=== PATIENT | female | born 1955 | race Two or more races ===

== ENCOUNTER 2018-11-12 09:44 | Day surgery (SDC) | payer BC ==
[~2018-11-12] VITALS: Ht 160 cm; Wt 89.9 kg
[~2018-11-12 09:44] MED LIST: AMIO100T4 PO; AMLO2.5T5 PO; BUPIVACAINE/PF-EPI 0.5% 1:200K ONE; CITA20TA6 PO; FERR-46 PO; LEVO112T4 PO; LEVO125T5 PO; LIDOCAINE 1%, 20ML ONE; LISI-170 PO; LISI1TAB5 PO; MULT-717 PO
[2018-11-12 09:59] VITALS: BP 126/80
[2018-11-12] MEDS ORDERED: LACTATED RINGERS 1,000 ML IV SCH (10:02)
[2018-11-12] MEDS ORDERED: ACETAMINOPHEN 500 MG TABLET PO ONE (10:30)
[2018-11-12] MEDS ORDERED: GABAPENTIN 300 MG CAPSULE PO ONE (10:30)
[2018-11-12] MEDS ORDERED: FENTANYL PF 250 MCG/5ML ONE (11:23)
[2018-11-12] MEDS ORDERED: ROCURONIUM 10MG/ML,5ML ONE (11:40)
[2018-11-12] MEDS ORDERED: CEFAZOLIN 1,000 MG ONE (11:40)
[2018-11-12] MEDS ORDERED: DEXAMETHASONE 4 MG/ML, 1ML ONE (11:40)
[2018-11-12] MEDS ORDERED: VASOPRESSIN 20 UNIT/ML, 1ML ONE (11:40)
[2018-11-12] MEDS ORDERED: PROPOFOL 10 MG/ML, 20ML ONE (11:40)
[2018-11-12] MEDS ORDERED: ONDANSETRON 2MG/ML, 2ML ONE (11:40)
[2018-11-12] MEDS ORDERED: SUCCINYLCHOLINE 20 MG/ML, 10ML ONE (11:40)
[2018-11-12] MEDS ORDERED: OXYcodone 5 MG/5 ML ORAL.SOL UDC ONE (13:52)
[2018-11-12] MEDS ORDERED: HALOPERIDOL 5 MG/ML IV PRN (14:00)
[2018-11-12] MEDS ORDERED: LABETALOL 5MG/ML, 20ML IV PRN (14:00)
[2018-11-12] MEDS ORDERED: hydrALAzine 20 MG/ML, 1ML IV PRN (14:00)
[2018-11-12] MEDS ORDERED: METOPROLOL 1 MG/ML, 5ML IV PRN (14:00)
[2018-11-12] MEDS ORDERED: OXYcodone 5 MG/5 ML ORAL.SOL UDC PO PRN (14:00)
[2018-11-12] MEDS ORDERED: PROMETHAZINE 25 MG/ML, 1ML IV PRN (14:00)
[2018-11-12] MEDS ORDERED: DIPHENHYDRAMINE 50 MG/ML, 1ML IVPush PRN (14:00)
[2018-11-12] MEDS ORDERED: FENTANYL PF 100 MCG/2ML IV PRN (14:00)
[2018-11-12] MEDS ORDERED: PROCHLORPERAZINE 5 MG/ML, 2ML IV PRN (14:00)
[2018-11-12] MEDS ORDERED: HYDROmorphone 2 MG/ML, 1ML IVPush PRN (14:00)
[2018-11-12] MEDS ORDERED: MEPERIDINE/PF 25MG/0.5ML IVPush PRN (14:00)
== END 2018-11-12 15:45 | disposition home or self-care (01) ==
LOC: OR 09:44
PROVIDERS: ATTEND Orthopaedic Surgery
DX: M92.62 Juvenile osteochondrosis of tarsus, left ankle (principal); M76.62 Achilles tendinitis, left leg; I10 Essential (primary) hypertension; F41.9 Anxiety disorder, unspecified; F32.9 Major depressive disorder, single episode, unspecified; E03.9 Hypothyroidism, unspecified
CPT/HCPCS: 27652; 28120; 64445; 73600; 76000; C1713; J0330; J0690; J1100; J2405; J2704; J3010; J7120; J3490

== ENCOUNTER 2019-04-04 17:22 | Emergency (ER) | payer BC ==
[~2019-04-04] VITALS: Ht 162.6 cm; Wt 85.0 kg
[~2019-04-04 17:22] MED LIST changes: -BUPIVACAINE/PF-EPI 0.5% 1:200K ONE; -LIDOCAINE 1%, 20ML ONE
--- NOTE | 2019-04-04 17:27 | NUR ---
MARYAN CALLED BY PT . PER REPORT, PT WILL BINGE DRINK FOR 1-2WEEKS. STATES, "SHE ONLY GETS UP TO GO TO THE BATHROOM." ERMD IN TO EXAMINE PT. PT IS TEARFUL. DENIES SOB, CP, TRUAMA. PT TO NIBP, CONT PULSE OX.
--- NOTE | 2019-04-04 17:30 | NUR ---
PT REPORTS 3 BEERS PER DAY
[2019-04-04 17:53] LABS: BASOPHILS # (AUTO) 0.04 x10^3/uL (0-0.1); BASOPHILS % (AUTO) 1 % (0-1); EOSINOPHILS # (AUTO) 0.09 x10^3/uL (0-0.4); EOSINOPHILS % (AUTO) 2 % (1-7); LYMPHOCYTES # (AUTO) 1.39 x10^3/uL (1-3.4); LYMPHOCYTES % (AUTO) 23 % (22-44); MD NO; MEAN CORPUSCULAR HEMOGLOBIN 27.1 pg (27.0-34.8); MEAN CORPUSCULAR HGB CONC 33.1 g/dL (32.4-35.8); MEAN CORPUSCULAR VOLUME 81.8 fL (80-100); MEAN PLATELET VOLUME 7.3 fL (7.4-10.4); MONOCYTES # (AUTO) 0.26 x10^3/uL (0.2-0.8); MONOCYTES % (AUTO) 4 % (2-9); NEUTROPHILS # (AUTO) 4.34 x10^3/uL (1.8-6.8); NEUTROPHILS % (AUTO) 71 % (42-75); PLATELET COUNT 386 x10^3/uL (130-400); RED BLOOD COUNT 4.11 x10^6/uL (3.82-5.3); RED CELL DISTRIBUTION WIDTH 19.7 % (9.6-15.2)
[2019-04-04 18:00] LABS: INTERNATIONAL NORMALIZED RATIO 1.05 (0.93-1.1)
[2019-04-04] MEDS ORDERED: THIAMINE 100MG TABLET PO ONE (18:00)
[2019-04-04] MEDS ORDERED: ONDANSETRON 2MG/ML, 2ML IVPush ONE (18:00)
[2019-04-04] MEDS ORDERED: SODIUM CHLORIDE FLUSH 10ML SYR IVF ONE (18:00)
[2019-04-04 18:03] LABS: ALANINE AMINOTRANSFERASE 31 U/L (12-78); ALBUMIN 3.2 g/dL (3.4-5.0); ANION GAP 12 mmol/L (5-15); CALCIUM 7.7 mg/dL (8.5-10.1); CHLORIDE 100 mmol/L (98-107); CREATININE 0.69 mg/dL (0.55-1.02)
--- NOTE | 2019-04-04 18:03 | NUR ---
PATIENT ASSITED TO COMODE. PATIENT NEEDED ONE PERSON ASSIST AND FOLLOWED SOME DIRECTIONS. PATIENT REFUSED CHANGING INTO A GOWN AT THIS TIME. UA SENT TO LAB
[2019-04-04 18:05] LABS: ALKALINE PHOSPHATASE 152 U/L (45-117); BILIRUBIN,TOTAL 0.7 mg/dL (0.2-1.0); TOTAL PROTEIN 7.6 g/dL (6.4-8.2)
[2019-04-04 18:18] LABS: AMPHETAMINE SCREEN, URINE Negative (Negative); BARBITURATE SCREEN, URINE Negative (Negative); BENZODIAZEPINE SCREEN, URINE Negative (Negative); CANNABINOID SCREEN, URINE Negative (Negative); COCAINE SCREEN, URINE Negative (Negative); METHADONE SCREEN, URINE Negative (Negative); OPIATE SCREEN, URINE Negative (Negative)
--- NOTE | 2019-04-04 18:53 | NUR ---
EKG COMPLETED BY [facility], PT RESTING IN BED, NAD, AT BEDSIDE, WILL REPORT TO DANY LOPEZ
--- NOTE | 2019-04-04 19:24 | NUR ---
PT ASSISTED TO BS COMMODE. BS REPORT OF PT FROM JESSICA BUNDY AND ASSUMING CARE OF PT AT THIS TIME.
--- NOTE | 2019-04-04 20:19 | NUR ---
pt d/c with d/c summary and scripts. all questions answered. pt provided with resources and 15 minutes of f/u education. pt and deny any other needs pertaining to this visit. pt wheeled to registration desk for d/c home. pt aao x 4 and vss prior to pt dc.
[2019-04-04 20:20] VITALS: BP 116/43
== END 2019-04-04 20:22 | disposition home or self-care (01) ==
LOC: ED 18:10
DX: F10.220 Alcohol dependence with intoxication, uncomplicated (principal); Z71.41 Alcohol abuse counseling and surveillance of alcoholic
CPT/HCPCS: 36415; 80053; 80307; 83690; 85025; 85610; 85730; 93005; 99284